=== PATIENT | female | born 2000 ===

== ENCOUNTER 2019-02-17 01:08 | Observation (INO) ==
[2019-02-17 01:44] LABS: Bilirubin,Urine Negative (Negative); Blood,Urine Negative (Negative); Clarity,Urine Cloudy (Clear); Color,Urine Yellow (Yellow); Glucose,Urine (UA) 250 mg/dL (Normal); Ketones,Urine Negative (Negative); Leukocyte Esterase,Urine Trace (Negative); Nitrite,Urine Negative (Negative); Protein,Urine Negative (Neg-Trace); Specific Gravity,Urine 1.019 (1.010-1.025); Urobilinogen,Urine Normal (Normal)
[2019-02-17 02:00] LABS: Amphetamine Screen,Urine Negative ng/mL (Cutoff=1000); Barbiturate Screen,Urine Negative ng/mL (Cutoff=200); Benzodiazepines Screen,Urine Negative ng/mL (Cutoff=200); Cannabinoid Screen,Urine Negative ng/mL (Cutoff = 50); Cocaine Screen,Urine Negative ng/mL (Cutoff= 300); Opiate Screen,Urine Negative ng/mL (Cutoff=300); Phencyclidine Screen,Urine Negative ng/mL (Cutoff=25)
[2019-02-17 02:13] LABS: Bacteria,Urine Few per hpf (None-Few); Hyaline Casts,Urine None Seen per lpf (None-Few); Mucus,Urine Few (Few); RBC,Urine 0-3 per hpf (0-3); Squamous Epithelial Cell,Urine Many per lpf (None-Few); WBC,Urine 0-3 per hpf (0-3)
--- NOTE | 2019-02-17 02:40 | OB/GYN Progress Note ---
Date of Encounter: 02/17/19 Time of Encounter: 02:34 - Assessment and Plan (1) 36 weeks gestation of Current Visit: Yes Status: Acute (2) Uterine contractions Current Visit: Yes Status: Acute Patient states no complaints of painful contractions in triage, only feels abdominal tightening. No change on serial cervical exams. Discharged home with labor and when to return to triage precautions. Patient verbalizes understanding Subjective - Subjective Interval history: 36+0 weeks gestation presents with complaints of lower abdominal and back pain and loss of mucous plug over the last day. He should not reports good movement, denies vaginal bleeding or leaking of fluid. Since states she h as had no further pain or discomfort while in triage, but can fill abdomen tightening. Antepartum ROS: movement normal, contractions, no loss of fluid, no vaginal bleeding Objective - Vital Signs Vital Signs: Intake and Output 02/16/19 02/16/19 02/17/19 15:59 23:59 07:59 Other: Weight 99.337 kg Patient Weight 02/17/19 23:59 Weight 99.337 kg - Exam FHR: auscultation normal FHR comments: Baseline 150 Abdomen: Present: soft, gravid Cervical dilation: 1 per RN - Labs Labs: Abnormal lab results Cloudy (Clear) A 02/17/19 01:32 250 mg/dL (Normal) H 02/17/19 01:32 Ur Leukocyte Esterase Trace (Negative) H 02/17/19 01:32 Ur Squamous Epith Cells Many per lpf (None-Few) H 02/17/19 01:32 Ur Culture Indicated? YES (NO) A 02/17/19 01:32
== END 2019-02-17 03:05 | disposition home or self-care (01) ==
LOC: 1NENULAB
PROVIDERS: ADMIT Advanced Practice Midwife; ATTEND Advanced Practice Midwife